=== PATIENT | female | born 1980 | race Caucasian/White ===

== ENCOUNTER 2017-04-20 21:44 | Emergency (ER) | payer BC ==
[2017-04-20] MEDS ORDERED: Zofran 4 MG/2 ML VIAL IV ONE (22:05)
[2017-04-20] MEDS ORDERED: Sodium Chloride 0.9% 1000 ML 1,000 ML IV STA (22:05)
[2017-04-20] MEDS ORDERED: MORPHINE SULFATE 4 MG INJ IV ONE ×2 (22:05→22:56)
--- NOTE | 2017-04-20 22:09 | ERPHSYRPT ---
- History of Present Illness Time Seen by Provider: 04/20/17 22:06 Source: patient Exam Limitations: no limitations Patient Subjective Stated Complaint: Pt sts headache on right side of head that starts in the right occipit and radiates into the right side of the front of the head. Reports it feels like her head is going to "blow off". Describes as crescendo headache that has worsened over last 2 days. Reports that she has taken excedrin without relief and also Imitrex x 2 without relief. Reports nausea. Triage Nursing Assessment: Pt alert, oriented, answers questions appropriately. Skin pink, warm, dry. Resps non-labored. Pt holding head shielding eyes from the light. Ambulatory to tx room, steady gait noted. Physician History: 36-year-old white female arrives with complaint of pain in her head superior region radiating to the right side symptoms going on for 2 days. Patient states she's had nausea no vomiting no fevers. Patient has had photophobia. Patient states she's had history of headaches in the past but never really diagnosed with migraines. Past medical history is negative otherwise. Past surgical history includes appendectomy, tubal ligation Timing/Duration: today Severity: moderate Modifying Factors: Improves With: nothing Associated Symptoms: nausea, headaches, No vomiting, No abdominal pain, No shortness of breath, No heartburn, No diaphoresis, No cough, No chills, No chest pain, No fever, No loss of appetite, No malaise, No rash, No syncope, No seizure Allergies/Adverse Reactions: Penicillins Allergy (Verified 04/20/17 22:04) Home Medications: Sumatriptan Succinate 25 mg [Imitrex 25 MG] 25 mg PO BID PRN 04/20/17 [History] Hx Tetanus, Diphtheria Vaccination/Date Given: Yes Hx Influenza Vaccination/Date Given: No Hx Pneumococcal Vaccination/Date Given: No - Review of Systems Constitutional: No Fever, No Chills Eyes: Photophobia, No Discharge, No Eye Pain, No Eye Redness, No Itchy, No Tearing, No Vision Changes, No Double Vision, No Foreign Body Sensation Ears, Nose, & Throat: No Symptoms, No Ear Pain, No Ear Discharge, No Hearing Changes, No Tinnitus, No Nose Pain, No Nose Congestion, No Nose Discharge, No Sinus Drainage, No Epistaxis, No Mouth Pain, No Mouth Swelling, No Loose Teeth, No Throat Pain, No Throat Swelling, No Hoarse, No Painful Swallowing, No Snoring Respiratory: No Cough, No Dyspnea Cardiac: No Chest Pain, No Edema, No Syncope Abdominal/Gastrointestinal: Nausea, No Abdominal Pain, No Vomiting, No Diarrhea Genitourinary Symptoms: No Dysuria Musculoskeletal: No Back Pain, No Neck Pain Skin: No Rash Neurological: Headache, No Dizziness, No Focal Weakness, No Gait Changes, No Irritability, No Lethargy, No Paralysis, No Parasthesia, No Seizure, No Sensory Changes, No Speech Changes, No Tics, No Tremors, No Vertigo Psychological: No Symptoms Endocrine: No Symptoms All Other Systems: Reviewed and Negative - Past Medical History Pertinent Past Medical History: No - Past Surgical History Past Surgical History: Yes Gastrointestinal: Appendectomy Female Surgical History: Tubal Ligation - Social History Smoking Status: Never smoker Exposure to second hand smoke: No Alcohol Use: Socially Drug Use: none Patient Lives Alone: No Significant Family History: no pertinent family hx - Female History Hx Last Menstrual Period: 4 days ago Hx Now: No - Nursing Vital Signs Nursing Vital Signs: Initial Vital Signs Temperature 97.8 F 04/20/17 21:54 Pulse Rate 82 04/20/17 21:54 Respiratory Rate 16 04/20/17 21:54 Blood Pressure 138/75 04/20/17 21:54 O2 Sat by Pulse Oximetry 97 04/20/17 21:54 Pain Scale Pain Intensity 8 - Physical Exam General Appearance: mild distress Eye Exam: PERRL/EOMI, eyes nml inspection Ears, Nose, Throat Exam: normal ENT inspection, TMs normal, pharynx normal, moist mucous membranes Neck Exam: normal inspection, non-tender, supple, full range of motion Respiratory Exam: normal breath sounds, lungs clear, No respiratory distress Cardiovascular Exam: regular rate/rhythm, normal heart sounds, normal peripheral pulses Gastrointestinal/Abdomen Exam: soft, normal bowel sounds, No tenderness, No mass Back Exam: normal inspection, normal range of motion, No CVA tenderness, No vertebral tenderness Extremity Exam: normal inspection, normal range of motion, pelvis stable Neurologic Exam: alert, oriented x 3, cooperative, 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, normal mood/affect, nml cerebellar function, nml station & gait, sensation nml, No motor deficits Lymphatic Exam: No adenopathy SpO2 Interpretation: normal (97%) SpO2: 97 Oxygen Delivery: Room Air - Course Nursing assessment & vital signs reviewed: Yes - CT Exams Head CT Interpretation: Tele-radiologist Report (head CT without contrast: Impression : Normal head/brain CT) Ordered Tests: Active Orders 24 hr Category Date Time Status IV Insertion STAT Care 04/20/17 22:05 Active HEAD WITHOUT CONTRAST [CT] Stat Exams 04/20/17 22:57 Taken BMP Stat Lab 04/20/17 22:10 Completed CBC W DIFF Stat Lab 04/20/17 22:10 Completed Medication Summary Discontinued Medications Generic Name Dose Route Start Last Admin Trade Name Freq PRN Reason Stop Dose Admin Sodium Chloride 1,000 mls @ 999 mls/hr 04/20/17 22:05 04/20/17 22:23 Sodium Chloride 0.9% 1000 Ml IV 04/20/17 23:05 999 mls/hr .Q1H1M STA Administration Sodium Chloride Confirm 04/20/17 22:18 Sodium Chloride 0.9% 1000 Ml Administered 04/20/17 22:19 Dose 1,000 mls @ ud .ROUTE .STK-MED ONE Morphine Sulfate 4 mg 04/20/17 22:05 04/20/17 22:22 Morphine Sulfate 4 Mg Inj IV 04/20/17 22:06 4 mg STAT ONE Administration Morphine Sulfate Confirm 04/20/17 22:18 Morphine Sulfate 4 Mg Inj Administered 04/20/17 22:19 Dose 4 mg .ROUTE .STK-MED ONE Morphine Sulfate 4 mg 04/20/17 22:56 04/20/17 23:04 Morphine Sulfate 4 Mg Inj IV 04/20/17 22:57 4 mg STAT ONE Administration Morphine Sulfate Confirm 04/20/17 23:00 Morphine Sulfate 4 Mg Inj Administered 04/20/17 23:01 Dose 4 mg .ROUTE .STK-MED ONE Ondansetron HCl 4 mg 04/20/17 22:05 04/20/17 22:23 Zofran 4 Mg/2 Ml Vial IV 04/20/17 22:06 4 mg STAT ONE Administration Ondansetron HCl Confirm 04/20/17 22:18 Zofran 4 Mg/2 Ml Vial Administered 04/20/17 22:19 Dose 4 mg .ROUTE .STK-MED ONE Lab/Rad Data: Laboratory Result Diagrams 04/20/17 22:10 04/20/17 22:10 Laboratory Results 04/20/17 04/20/17 Range/Units 22:10 22:10 WBC 10.5 (4.0-10.5) K/mm3 RBC 4.67 (4.1-5.4) M/mm3 Hgb 13.0 (12.0-16.0) gm/dl Hct 39.7 (35-47) % MCV 85.0 (78-100) fl MCH 27.8 (26-32) pg MCHC 32.7 (32-36) g/dl RDW 13.9 (11.5-14.0) % Plt Count 257 (150-450) K/mm3 MPV 9.3 (6-9.5) fl Gran % 62.0 (36.0-66.0) % Lymphocytes % 30.2 (24.0-44.0) % Monocytes % 6.1 (0.0-12.0) % Eosinophils % 1.5 (0.00-5.0) % Basophils % 0.2 (0.0-0.4) % Basophils # 0.02 (0-0.4) Sodium 142 (136-145) mEq/L Potassium 3.7 (3.5-5.1) mEq/L Chloride 105 (98-107) mEq/L Carbon Dioxide 26.7 (21-32) mEq/L Anion Gap 14.0 (5-15) MEQ/L BUN 12 (9-20) mg/dL Creatinine 0.73 (0.55-1.30) mg/dl Estimated GFR > 60 ML/MIN Glucose 120 H (70-110) MG/DL Calcium 8.9 (8.5-10.1) mg/dL - Progress Progress: improved Progress Note: 04/20/17 23:43 Patient is improved would not pain-free after 8 mg of morphine and 1 L of normal saline. CBC head CT within normal limits patient without any neck pain. Patient is concerned that she is not completely pain-free. I've offered patient Toradol injection she really doesn't want this. I've offered to discuss her case with Dr. Coker for possible admission for pain control she does not want this. Will go ahead and give patient a prescription for [place] for pain patient to return home rest dark quiet room. Follow-up with Dr. Coker tomorrow if symptoms persist. Return for acute distress or for severe symptoms. - Departure Time of Disposition: 23:45 Departure Disposition: Home Clinical Impression: Headache Qualifiers: Headache type: unspecified Headache chronicity pattern: acute headache Intractability: not intractable Qualified Code(s): R51 - Headache Condition: Fair Critical Care Time: No Referrals: MOSHE ROQUE [Primary Care Provider] - Instructions: Headache Additional Instructions: Return home. Rest in a dark quiet room. [place] 5/325 one to two orally every 4-6 hours as needed for pain. Follow-up with your family doctor tomorrow if symptoms persist. Return for acute distress or for severe symptoms. Prescriptions: Hydrocodone/Acetaminophen [[place] 5-325 Tablet] 1 - 2 tab PO Q4-6HPRN PRN #12 tablet PRN Reason: Pain
[2017-04-20] MEDS ORDERED: Sodium Chloride 0.9% 1000 ML 1,000 ML ONE (22:18)
[2017-04-20] MEDS ORDERED: MORPHINE SULFATE 4 MG INJ ONE ×2 (22:18→23:00)
[2017-04-20] MEDS ORDERED: Zofran 4 MG/2 ML VIAL ONE (22:18)
[2017-04-20 22:21] LABS: BASOPHIL % 0.2 % (0.0-0.4); Eosinophil % 1.5 % (0.00-5.0); Lymphocytes % 30.2 % (24.0-44.0); Mean Corpuscular Hemoglobin 27.8 pg (26-32); Mean Platelet Volume 9.3 fl (6-9.5); Monocytes % 6.1 % (0.0-12.0); Platelet Count 257 K/mm3 (150-450); Red Blood Count 4.67 M/mm3 (4.1-5.4); Red Cell Distribution Width 13.9 % (11.5-14.0); White Blood Count 10.5 K/mm3 (4.0-10.5)
[2017-04-20 22:36] LABS: BLOOD UREA NITROGEN 12 mg/dL (9-20); Carbon Dioxide 26.7 mEq/L (21-32); Glucose 120 MG/DL (70-110)
[2017-04-20 22:47] LABS: CHLORIDE 105 mEq/L (98-107); Potassium 3.7 mEq/L (3.5-5.1); SODIUM 142 mEq/L (136-145)
[2017-04-20] MEDS ORDERED: NORCO 5/325 MG PO ONE (23:48)
[2017-04-20] MEDS ORDERED: NORCO 5/325 MG ONE (23:55)
[2017-04-21 00:16] VITALS: BP 118/75; PULSE 65; O2SAT 98
--- NOTE | 2017-04-21 08:45 | XRAY ---
Indication: Right-sided headache and nausea. Multiple contiguous axial images obtained through the head without contrast. Comparison: None. Normal appearing brain parenchyma, ventricles, and bony calvarium. Visualized paranasal sinuses and mastoid air cells clear. Impression: Normal CT head without contrast exam. Comment: Preliminary interpretation was made by [facility]. No discrepancy. CT DI 69.66
== END 2017-04-21 00:15 | disposition home or self-care (01) ==
LOC: ED 21:44
DX: R51 Headache (principal); R11.0 Nausea
CPT/HCPCS: 36000; 36415; 70450; 80048; 85025; 96360; 96374; 96375; 96376; 99284; J2270; J2405; A9270-GY

== ENCOUNTER 2019-05-25 02:43 | Emergency (ER) | payer BC ==
--- NOTE | 2019-05-25 03:49 | ERPHSYRPT ---
- History of Present Illness Time Seen by Provider: 05/25/19 03:00 Source: patient Exam Limitations: no limitations Patient Subjective Stated Complaint: pt states, "The pain in my rt ear and down the rt side of my neck woke me up at 0200 this morning. I've had some drainage x2 weeks as well but I thought that was because I had 2 new ear piercings". Triage Nursing Assessment: pt alert and oriented x3, pleasant. Pt c/o rt ear pain radiating into neck area, throbbing and pressure. Has had some drainage x2 weeks but also has 2 new ear piercings as well. Rt ear and neck are very tender. Physician History: 38 y/o white female presents with 2 week h/o right ear drainage. pt recently had piercing of tragus. this am at 0200, significant pain right ext ear, ear canal pain and mastoid pain. post auricular adenopathy present. with pain radiating caudally along lymph node chain. no fever. pt allergic to pcn but has had keflex and rocephin in past without issues. denies ear trauma Timing/Duration: abrupt onset (this am) ENT Location: ear (R) Prearrival Treatment: no prearrival treatment Associated Symptoms: ear pain (R), ear drainage, swollen glands, No cough, No fever Allergies/Adverse Reactions: Penicillins Allergy (Verified 04/20/17 22:04) Hx Tetanus, Diphtheria Vaccination/Date Given: Yes Hx Influenza Vaccination/Date Given: Yes Hx Pneumococcal Vaccination/Date Given: No Immunizations Up to Date: Yes - Review of Systems Constitutional: No Symptoms Eyes: No Symptoms Ears, Nose, & Throat: Ear Pain (right ), Ear Discharge (at new ear piercing site ) Respiratory: No Symptoms Cardiac: No Symptoms Abdominal/Gastrointestinal: No Symptoms Genitourinary Symptoms: No Symptoms Musculoskeletal: No Symptoms Skin: No Symptoms Neurological: No Symptoms Psychological: No Symptoms Endocrine: No Symptoms Hematologic/Lymphatic: No Symptoms Immunological/Allergic: No Symptoms All Other Systems: Reviewed and Negative - Past Medical History Pertinent Past Medical History: No Neurological History: No Pertinent History ENT History: No Pertinent History Cardiac History: No Pertinent History Respiratory History: No Pertinent History Endocrine Medical History: No Pertinent History Musculoskeletal History: No Pertinent History GI Medical History: No Pertinent History History: No Pertinent History Psycho-Social History: No Pertinent History Female Reproductive Disorders: No Pertinent History - Past Surgical History Past Surgical History: Yes Neuro Surgical History: No Pertinent History Cardiac: No Pertinent History Respiratory: No Pertinent History Gastrointestinal: Appendectomy Genitourinary: No Pertinent History Musculoskeletal: No Pertinent History Female Surgical History: Tubal Ligation - Social History Smoking Status: Never smoker Exposure to second hand smoke: No Alcohol Use: Socially Drug Use: none Patient Lives Alone: No Significant Family History: no pertinent family hx - Female History Hx Last Menstrual Period: currently Hx Now: No - Nursing Vital Signs Nursing Vital Signs: Initial Vital Signs Temperature 97.5 F 05/25/19 02:52 Pulse Rate 85 05/25/19 02:52 Respiratory Rate 15 05/25/19 02:52 Blood Pressure 118/84 05/25/19 02:52 O2 Sat by Pulse Oximetry 97 05/25/19 02:52 Pain Scale Pain Intensity 4 - Physical Exam General Appearance: no apparent distress, alert, anxiety Eye Exam: bilateral eye: normal inspection, PERRL, EOMI Ear Exam: right ear: swelling, tenderness, left ear: auricle normal, canal normal, TM normal, other (ear canal swollen,external ear swollen. tenderness mastoid. post auricular adenopathy) Throat Exam: normal, pharynx normal, No dental tenderness, No excessive drooling , No foreign body Neck Exam: non-tender, supple, full range of motion, trachea midline, lymphadenopathy (R) (tenderness along upper right cervival chain. 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 Skin Exam: normal color, warm, dry SpO2 Interpretation: normal SpO2: 97 O2 Delivery: Room Air - Course Nursing assessment & vital signs reviewed: Yes Ordered Tests: Active Orders 24 hr Category Date Time Status IAC W/O CONTRAST [CT] Stat Exams 05/25/19 03:23 Taken - Progress Progress: unchanged, pain not gone completely Progress Note: 05/25/19 04:31 ct iac-no acute findings pt does not want narcotics Counseled pt/family regarding: diagnosis, need for follow-up, rad results - Departure Departure Disposition: Home Clinical Impression: Mastoiditis of right side Condition: Stable Critical Care Time: No Referrals: MOSHE ROQUE [Primary Care Provider] - Additional Instructions: may add tylenol and ibuprofen for pain. follow up with primary doctor for persistent symptoms. Prescriptions: Ciprofloxacin [Cipro 500 MG] 500 mg PO BID #20 tablet Prednisone 10 mg [Deltasone 10 mg] 10 mg PO TID #12 tablet
[2019-05-25] MEDS ORDERED: Rocephin 1000 MG INJ IM ONE (04:30)
[2019-05-25] MEDS ORDERED: solu-MEDROL 125 MG IM ONE (04:30)
[2019-05-25] MEDS ORDERED: Rocephin 1000 MG INJ ONE (04:34)
[2019-05-25] MEDS ORDERED: solu-MEDROL 125 MG ONE (04:34)
[2019-05-25 04:50] VITALS: BP 115/80; PULSE 77; O2SAT 98
--- NOTE | 2019-05-25 09:16 | XRAY ---
Indication: Right ear infection. Multiple contiguous thin axial images obtained through the internal auditory canals. Two-dimensional sagittal and coronal reformatted images obtained. Comparison: None Internal and external auditory canals are bilaterally symmetric. No soft tissue mass, opacification, or fluid leveling in the middle ear including epitympanic recess. Ossicles and scutum unremarkable. Mastoid air cells are pneumatized and clear. The cochlea and semicircular canals are bilaterally symmetric. Remaining visualized noncontrasted soft tissues are unremarkable. Impression: Negative CT internal auditory canals. Comment: Preliminary interpretation was made by [facility]. No discrepancy. CT DI 28.41
== END 2019-05-25 04:50 | disposition home or self-care (01) ==
LOC: ED 02:43
DX: H70.91 Unspecified mastoiditis, right ear (principal)
CPT/HCPCS: 70480; 96372; 99284; J0696; J2930

== ENCOUNTER 2022-09-25 18:18 | Observation (INO) | payer BC ==
[2022-09-25] MEDS ORDERED: Sodium Chloride 0.9% 1000 ML 1,000 ML IV STA (19:31)
[2022-09-25] MEDS ORDERED: Sodium Chloride 0.9% 1000 ML 1,000 ML ONE (19:35)
[2022-09-25 19:42] LABS: HCG URINE TEST NEGATIVE (NEGATIVE)
[2022-09-25 19:43] LABS: Absolute Neutrophil Ct (ANC) 10.56 x10^3/uL (1.4-6.9); BASOPHIL % 0.3 % (0.0-0.4); Basophil (Absolute #) 0.04 x10^3/uL (0-0.4); Eosinophil % 0.2 % (0.00-5.0); Eosinophil (Absolute #) 0.03 x10^3/uL (0-0.5); Hematocrit 42.4 % (35-47); IMMATURE GRAN # 0.03 x10^3u/L (0.00-0.03); IMMATURE GRAN % 0.2 % (0.00-0.4); Lymphocyte (Absolute #) 2.41 x10^3/uL (1.0-4.6); Lymphocytes % 17.5 % (24.0-44.0); Mean Cell Volume 85.8 fL (78-100); Mean Corpuscular Hemoglobin 28.3 pg (26-32); Mean Platelet Volume 10.2 fL (7.5-11.0); Monocyte (Absolute #) 0.73 x10^3/uL (0.0-1.3); Monocytes % 5.3 % (0.0-12.0); Neutrophil % 76.5 % (36.0-66.0); Platelet Count 241 x10^3/uL (150-450); Red Blood Count 4.94 x10^6/uL (4.1-5.4); White Blood Count 13.8 x10^3/uL (4.0-10.5)
[2022-09-25] MEDS ORDERED: Zofran 4 MG/2 ML VIAL IV ONE (19:43)
[2022-09-25] MEDS ORDERED: Zofran 4 MG/2 ML VIAL ONE (19:44)
[2022-09-25 19:57] LABS: Appearance Clear (Clear); Bacteria None Seen /HPF (None Seen); Bilirubin Negative (Negative); Blood Small (Negative); Epithelial Cells Rare /HPF (None Seen); Glucose, Urine Negative (Negative); Hyaline Casts NONE SEEN /LPF (0-2); Ketones 40 (Negative); Leukocyte Esterase Negative (Negative); Nitrite Negative (Negative); Ph 5.5 (4.6-8.0); Protein,Urine Dip Trace (Negative); RBC 0-2 /HPF (0-5); Specific Gravity 1.025 (1.005-1.030); WBC 0-2 /HPF (0-5)
[2022-09-25 19:58] LABS: ADD URINE CULTURE? NO (NO)
--- NOTE | 2022-09-25 20:10 | ERPHSYRPT ---
- History of Present Illness Time Seen by Provider: 09/25/22 19:30 Historian: patient Patient Subjective Stated Complaint: PT HERE FOR BRIGHT RED BLOOD IN STOOLS TODAY WITH LOWER ABD CRAMPING. SHE STATES SHE HAS NOT FELT WELL SINCE FRIDAY, HAS HAD SOME N/V Triage Nursing Assessment: PT ALERT, WALKED IN, IN MILD DISTRESS, RESP EASY, SKIN W/D/P. ABD SOFT WITH BS HEARD, LOWER ABD TENDER TO TOUCH Physician History: Patient is a 42-year-old female presents to our ED for evaluation of lower abdominal pain and bright red blood per rectum. Patient states symptoms started on Friday approximately 2 to 3 days ago. Patient's lower abdominal pain de scribed as a cramping sensation. Patient observed small amount of blood in her stool. No vaginal discharge. No trauma. No fever. Patient's last colonoscopy was approximately 8 years ago. Patient is otherwise healthy. No history of diverticulitis or any intra-abdominal pathology for that matter. When present symptoms were moderate in intensity. Patient states pain is currently minimal. She declined pain medication. However she later requested Zofran for nausea. Patient does not have a primary care physician that she follows. Patient states she is otherwise healthy. She voices no other complaints or concerns at this time. Portions of this note were created with voice recognition technology. There may be grammatical, spelling, punctuation or sound alike errors Timing/Duration: day(s) (2 days) Activities at Onset: none Quality: aching Abdominal Pain Onset Location: other (Lower abdomen) Pain Radiation: no radiation Severity of Pain-Max: moderate Severity of Pain-Current: mild Modifying Factors: Improves With: nothing Associated Symptoms: nausea, other (Bright red blood per rectum) Previous symptoms: no prior history Allergies/Adverse Reactions: Penicillins Allergy (Verified 09/25/22 19:07) Hx Tetanus, Diphtheria Vaccination/Date Given: No Hx Influenza Vaccination/Date Given: Yes Hx Pneumococcal Vaccination/Date Given: No Immunizations Up to Date: Yes Travel Risk - International Travel Have you traveled outside of the country in past 3 weeks: No - Coronavirus Screening Are you exhibiting any of the following symptoms?: No Close contact with a COVID-19 positive Pt in past 14-21 Days: No - Vaccine Status Have you recieved a Covid-19 vaccination: Yes [employer]: [employer] - Vaccination Dates Date of 2cond Vaccination (if applicable): 2020 - Review of Systems Constitutional: No Symptoms, No Fever, No Chills Eyes: No Symptoms Ears, Nose, & Throat: No Symptoms Respiratory: No Symptoms, No Cough, No Dyspnea Cardiac: No Symptoms, No Chest Pain, No Edema, No Syncope Abdominal/Gastrointestinal: No Symptoms, No Abdominal Pain, No Nausea, No Vomiting, No Diarrhea Genitourinary Symptoms: No Symptoms, No Dysuria Musculoskeletal: No Symptoms, No Back Pain, No Neck Pain Skin: No Symptoms, No Rash Neurological: No Symptoms, No Dizziness, No Focal Weakness, No Sensory Changes Psychological: No Symptoms Endocrine: No Symptoms Hematologic/Lymphatic: No Symptoms Immunological/Allergic: No Symptoms All Other Systems: Reviewed and Negative - Past Medical History Pertinent Past Medical History: No Neurological History: No Pertinent History ENT History: No Pertinent History Cardiac History: No Pertinent History Respiratory History: No Pertinent History Endocrine Medical History: No Pertinent History Musculoskeletal History: No Pertinent History GI Medical History: No Pertinent History History: No Pertinent History Psycho-Social History: No Pertinent History Female Reproductive Disorders: No Pertinent History - Past Surgical History Past Surgical History: Yes Neuro Surgical History: No Pertinent History Cardiac: No Pertinent History Respiratory: No Pertinent History Gastrointestinal: Appendectomy Genitourinary: No Pertinent History Musculoskeletal: No Pertinent History Female Surgical History: Tubal Ligation Other Surgical History: BREAST REDUCTION - Social History Smoking Status: Never smoker Exposure to second hand smoke: No Alcohol Use: Socially Drug Use: none Patient Lives Alone: No Significant Family History: no pertinent family hx - Female History Hx Last Menstrual Period: AUGUST Hx Now: No - Nursing Vital Signs Nursing Vital Signs: Initial Vital Signs Temperature 98.3 F 09/25/22 19:10 Pulse Rate 78 09/25/22 19:10 Respiratory Rate 18 09/25/22 19:10 Blood Pressure 137/84 09/25/22 19:10 O2 Sat by Pulse Oximetry 98 09/25/22 19:10 Pain Scale Pain Intensity 3 - Physical Exam General Appearance: no apparent distress, alert Eye Exam: PERRL/EOMI, eyes nml inspection Ears, Nose, Throat Exam: normal ENT inspection, TMs normal, pharynx normal, mois t mucous membranes Neck Exam: normal inspection, non-tender, supple, full range of motion Respiratory Exam: normal breath sounds, lungs clear, airway intact, No respiratory distress Cardiovascular Exam: regular rate/rhythm, normal heart sounds, normal peripheral pulses Gastrointestinal/Abdomen Exam: soft, tenderness, other (Tenderness to palpation left lower quadrant. No guarding. No peritoneal signs.), No mass Back Exam: normal inspection, normal range of motion, No CVA tenderness, No vertebral tenderness Extremity Exam: normal inspection, normal range of motion, pelvis stable Neurologic Exam: alert, oriented x 3, cooperative, brick off bearer II-XII nml as tested, normal mood/affect, nml cerebellar function, sensation nml, No motor deficits Skin Exam: normal color, warm, dry Lymphatic Exam: No adenopathy SpO2 Interpretation: normal SpO2: 99 O2 Delivery: Room Air - Course Nursing assessment & vital signs reviewed: Yes - CT Exams Abdomen/Pelvis CT Interpretation: Tele-radiologist Report (Compared to 01/30/2011 new mild descending and proximal sigmoid colitis without complications.) Ordered Tests: Active Orders 24 hr Category Date Time Status IV Insertion STAT Care 09/25/22 19:31 Active ABDOMEN AND PELVIS W CONTRAST [CT] Stat Exams 09/25/22 19:32 Taken CBC W DIFF Stat Lab 09/25/22 19:38 Completed CMP Stat Lab 09/25/22 19:38 Completed HCG QUALITATIVE, URINE Stat Lab 09/25/22 19:35 Completed LIPASE Stat Lab 09/25/22 19:38 Completed TROPONIN Q4H Lab 09/25/22 19:38 Completed TROPONIN Q4H Lab 09/25/22 23:45 Ordered TROPONIN Q4H Lab 09/26/22 03:45 Ordered UA W/RFX UR CULTURE Stat Lab 09/25/22 19:34 Completed Transfer Order Routine Transfer 09/26/22 Ordered Medication Summary Discontinued Medications Generic Name Dose Route Start Last Admin Trade Name Andreiq PRN Reason Stop Dose Admin Hydrocodone Bitart/Acetaminophen 1 tab 09/25/22 23:01 09/25/22 23:13 Hydrocodone/Apap 5/325 1 Tab Tablet PO 09/25/22 23:02 1 tab STAT ONE Administration Hydrocodone Bitart/Acetaminophen Confirm 09/25/22 23:08 Hydrocodone/Apap 5/325 1 Tab Tablet Administered 09/25/22 23:09 Dose 1 tab .ROUTE .STK-MED ONE Sodium Chloride 1,000 mls @ 999 mls/hr 09/25/22 19:31 09/25/22 20:59 Sodium Chloride 0.9% 1000 Ml IV 09/25/22 20:31 Infused .Q1H1M STA Infusion Sodium Chloride Confirm 09/25/22 19:35 Sodium Chloride 0.9% 1000 Ml Administered 09/25/22 19:36 Dose 1,000 mls @ ud .ROUTE .STK-MED ONE Levofloxacin/Dextrose 500 mg in 100 mls @ 100 mls/hr 09/25/22 22:36 09/26/22 00:27 Levofloxacin 500mg/100ml D5w IV 09/25/22 23:35 Infused STAT STA Infusion Metronidazole 500 mg in 100 mls @ 200 mls/hr 09/25/22 22:36 09/25/22 23:31 Flagyl 500 Mg Ivpb IV 09/25/22 23:05 Infused STAT STA Infusion Levofloxacin/Dextrose Confirm 09/25/22 22:41 Levofloxacin 500mg/100ml D5w Administered 09/25/22 22:42 Dose 500 mg in 100 mls @ ud IV .STK-MED ONE Metronidazole Confirm 09/25/22 22:42 Flagyl 500 Mg Ivpb Administered 09/25/22 22:43 Dose 500 mg in 100 mls @ ud IV .STK-MED ONE Ondansetron HCl 4 mg 09/25/22 19:43 09/25/22 19:45 Ondansetron Hcl 4 Mg/2 Ml Vial IV 09/25/22 19:44 4 mg STAT ONE Administration Ondansetron HCl Confirm 09/25/22 19:44 Ondansetron Hcl 4 Mg/2 Ml Vial Administered 09/25/22 19:45 Dose 4 mg .ROUTE .STK-MED ONE Lab/Rad Data: Laboratory Result Diagrams 09/25/22 19:38 09/25/22 19:38 Laboratory Results 09/25/22 09/25/22 09/25/22 Range/Units 23:35 19:38 19:38 WBC (4.0-10.5) x10^3/uL RBC (4.1-5.4) x10^6/uL Hgb (12.0-16.0) g/dL Hct (35-47) % MCV (78-100) fL MCH (26-32) pg MCHC (32-36) g/dL RDW (11.5-14.0) % Plt Count (150-450) x10^3/uL MPV (7.5-11.0) fL Gran % (36.0-66.0) % Immature Gran % (Auto) (0.00-0.4) % Nucleat RBC Rel Count (0.00-0.1) % Eos # (Auto) (0-0.5) x10^3/uL Immature Gran # (Auto) (0.00-0.03) x10^3u/L Absolute Lymphs (auto) (1.0-4.6) x10^3/uL Absolute Monos (auto) (0.0-1.3) x10^3/uL Absolute Nucleated RBC (0.00-0.01) x10^3u/L Lymphocytes % (24.0-44.0) % Monocytes % (0.0-12.0) % Eosinophils % (0.00-5.0) % Basophils % (0.0-0.4) % Absolute Granulocytes (1.4-6.9) x10^3/uL Basophils # (0-0.4) x10^3/uL Sodium 138 (137-145) mmol/L Potassium 3.9 (3.5-5.1) mmol/L Chloride 103 (98-107) mmol/L Carbon Dioxide 26 (22-30) mmol/L Anion Gap 12.8 (5-15) MEQ/L BUN 19 H (7-17) mg/dL Creatinine 0.65 (0.52-1.04) mg/dL Estimated GFR > 60.0 ML/MIN Glucose 87 (74-106) mg/dL Calcium 8.4 (8.4-10.2) mg/dL Total Bilirubin 0.80 (0.2-1.3) mg/dL AST 22 (14-36) U/L ALT 15 (0-35) U/L Alkaline Phosphatase 61 (38-126) U/L Troponin I < 0.012 (0.000-0.034) ng/mL Serum Total Protein 6.9 (6.3-8.2) g/dL Albumin 4.1 (3.5-5.0) g/dL Lipase 60 (23-300) U/L Urine Color (Yellow) Urine Appearance (Clear) Urine pH (4.6-8.0) Ur Specific [place] (1.005-1.030) Urine Protein (Negative) Urine Glucose (UA) (Negative) mg/dL Urine Ketones (Negative) Urine Blood (Negative) Urine Nitrite (Negative) Urine Bilirubin (Negative) Urine Urobilinogen (0.2) mg/dL Ur Leukocyte Esterase (Negative) U Hyaline Cast (Auto) (0-2) /LPF Urine Microscopic RBC (0-5) /HPF Urine Microscopic WBC (0-5) /HPF Ur Epithelial Cells (None Seen) /HPF Urine Bacteria (None Seen) /HPF Urine Culture Reflexed (NO) Urine HCG, Qual (NEGATIVE) Influenza Type A Ag NEGATIVE (NEGATIVE) Influenza Type B Ag NEGATIVE (NEGATIVE) RSV (PCR) NEGATIVE (NEGATIVE) SARS-CoV-2 (PCR) NEGATIVE (NEGATIVE) 09/25/22 09/25/22 09/25/22 Range/Units 19:38 19:35 19:34 WBC 13.8 H (4.0-10.5) x10^3/uL RBC 4.94 (4.1-5.4) x10^6/uL Hgb 14.0 (12.0-16.0) g/dL Hct 42.4 (35-47) % MCV 85.8 (78-100) fL MCH 28.3 (26-32) pg MCHC 33.0 (32-36) g/dL RDW 13.0 (11.5-14.0) % Plt Count 241 (150-450) x10^3/uL MPV 10.2 (7.5-11.0) fL Gran % 76.5 H (36.0-66.0) % Immature Gran % (Auto) 0.2 (0.00-0.4) % Nucleat RBC Rel Count 0.0 (0.00-0.1) % Eos # (Auto) 0.03 (0-0.5) x10^3/uL Immature Gran # (Auto) 0.03 (0.00-0.03) x10^3u/L Absolute Lymphs (auto) 2.41 (1.0-4.6) x10^3/uL Absolute Monos (auto) 0.73 (0.0-1.3) x10^3/uL Absolute Nucleated RBC 0.00 (0.00-0.01) x10^3u/L Lymphocytes % 17.5 L (24.0-44.0) % Monocytes % 5.3 (0.0-12.0) % Eosinophils % 0.2 (0.00-5.0) % Basophils % 0.3 (0.0-0.4) % Absolute Granulocytes 10.56 H (1.4-6.9) x10^3/uL Basophils # 0.04 (0-0.4) x10^3/uL Sodium (137-145) mmol/L Potassium (3.5-5.1) mmol/L Chloride (98-107) mmol/L Carbon Dioxide (22-30) mmol/L Anion Gap (5-15) MEQ/L BUN (7-17) mg/dL Creatinine (0.52-1.04) mg/dL Estimated GFR ML/MIN Glucose (74-106) mg/dL Calcium (8.4-10.2) mg/dL Total Bilirubin (0.2-1.3) mg/dL AST (14-36) U/L ALT (0-35) U/L Alkaline Phosphatase (38-126) U/L Troponin I (0.000-0.034) ng/mL Serum Total Protein (6.3-8.2) g/dL Albumin (3.5-5.0) g/dL Lipase (23-300) U/L Urine Color Yellow (Yellow) Urine Appearance Clear (Clear) Urine pH 5.5 (4.6-8.0) Ur Specific [place] 1.025 (1.005-1.030) Urine Protein Trace A (Negative) Urine Glucose (UA) Negative (Negative) mg/dL Urine Ketones 40 A (Negative) Urine Blood Small A (Negative) Urine Nitrite Negative (Negative) Urine Bilirubin Negative (Negative) Urine Urobilinogen 1.0 A (0.2) mg/dL Ur Leukocyte Esterase Negative (Negative) U Hyaline Cast (Auto) NONE SEEN (0-2) /LPF Urine Microscopic RBC 0-2 (0-5) /HPF Urine Microscopic WBC 0-2 (0-5) /HPF Ur Epithelial Cells Rare (None Seen) /HPF Urine Bacteria None Seen (None Seen) /HPF Urine Culture Reflexed NO (NO) Urine HCG, Qual NEGATIVE (NEGATIVE) Influenza Type A Ag (NEGATIVE) Influenza Type B Ag (NEGATIVE) RSV (PCR) (NEGATIVE) SARS-CoV-2 (PCR) (NEGATIVE) - Progress Progress: improved Progress Note: Patient is a 42-year-old female presents to our emergency department for evaluation of left lower quadrant pain. Pain has been progressively worsening. Pain now associated with bright red blood per rectum. CT abdomen pelvis reveals a sigmoid colitis. CBC shows a leukocytosis of 13.8. CMP within normal limits. COVID-negative. hCG negative. Lipase negative. Urinalysis negative. Troponin negative. Patient received Levaquin and Flagyl. Patient also received a dose of Zofran in our ED. Patient requested hydrocodone for pain control. IV fluids infused. Patient had a bloody bowel movement in our ED. Patient continues to feel bloated and experienced pain. Patient agreed to admission. Case discussed with who excepts admission to observation. Patient's presenting problem is acute. Complexity of problem addressed is moderate. New diagnosis with uncertain prognosis. No critical care time. Complexity of data reviewed and analyzed is moderate. Test ordered. Test reviewed and analyzed including urinalysis. Case and management discussed with hospitalist who excepts admission to observation. Patient agrees to admission at [facility] for further evaluation and treatment. Portions of this note were created with voice recognition technology. There may be grammatical, spelling, punctuation or sound alike errors Risk of complication and or risk morbidity/mortality of patient management is high. Patient will require hospitalization for further evaluation and antibiotic administration and pain control. Patient reassessed. Pain improved. She voices no other complaints or concerns at this time. Portions of this note were created with voice recognition technology. There may be grammatical, spelling, punctuation or sound alike errors 09/26/22 01:08 Counseled pt/family regarding: lab results, diagnosis, rad results - Departure Departure Disposition: Observation Clinical Impression: Leukocytosis, Colitis, Abdominal pain Condition: Stable Critical Care Time: No Referrals: DOCTOR,NO FAMILY [Primary Care Provider] - Follow up/PCP as directed
[2022-09-25 20:22] LABS: ALBUMIN 4.1 g/dL (3.5-5.0); ALKALINE PHOSPHATASE 61 U/L (38-126); ANION GAP 12.8 MEQ/L (5-15); BLOOD UREA NITROGEN 19 mg/dL (7-17); CHLORIDE 103 mmol/L (98-107); Calcium 8.4 mg/dL (8.4-10.2); Carbon Dioxide 26 mmol/L (22-30); Creatinine 1 0.65 mg/dL (0.52-1.04); EST GLOMERULAR FILTRATION RATE > 60.0 ML/MIN; Glucose 87 mg/dL (74-106); LIPASE 60 U/L (23-300); Potassium 3.9 mmol/L (3.5-5.1); SGOT/AST 22 U/L (14-36); SGPT/ALT 15 U/L (0-35); SODIUM 138 mmol/L (137-145); Total Protein 6.9 g/dL (6.3-8.2)
[2022-09-25] MEDS ORDERED: Levofloxacin 500MG/100ML D5W 500 MG/100 ML BAG IV STA (22:36)
[2022-09-25] MEDS ORDERED: FLAGYL 500 MG IVPB 500 MG/100 ML BAG IV STA (22:36)
[2022-09-25] MEDS ORDERED: Levofloxacin 500MG/100ML D5W 500 MG/100 ML BAG IV ONE (22:41)
[2022-09-25] MEDS ORDERED: FLAGYL 500 MG IVPB 500 MG/100 ML BAG IV ONE (22:42)
[2022-09-25] MEDS ORDERED: NORCO 5/325 MG PO ONE (23:01)
[2022-09-25] MEDS ORDERED: NORCO 5/325 MG ONE (23:08)
[2022-09-26 00:51] LABS: INFLUENZA A NEGATIVE (NEGATIVE); INFLUENZA B NEGATIVE (NEGATIVE); RESPIRATORY SYNCTIAL VIRUS NEGATIVE (NEGATIVE); SARS-CoV-2 Xpert Express NEGATIVE (NEGATIVE)
[2022-09-26] MEDS ORDERED: MORPHINE SULFATE 2 MG INJ IV PRN (01:11)
[2022-09-26] MEDS: Sodium Chloride 0.9% 1000 ML 1,000 ML IV SCH ×2 (02:57→14:55)
[2022-09-26 05:03] LABS: Absolute Neutrophil Ct (ANC) 7.38 x10^3/uL (1.4-6.9); BASOPHIL % 0.6 % (0.0-0.4); Basophil (Absolute #) 0.06 x10^3/uL (0-0.4); Eosinophil % 0.5 % (0.00-5.0); Eosinophil (Absolute #) 0.05 x10^3/uL (0-0.5); Hematocrit 37.4 % (35-47); Hemoglobin 12.4 g/dL (12.0-16.0); IMMATURE GRAN # 0.03 x10^3u/L (0.00-0.03); IMMATURE GRAN % 0.3 % (0.00-0.4); Lymphocytes % 23.3 % (24.0-44.0); Mean Cell Volume 85.6 fL (78-100); Mean Corpuscular Hemoglobin 28.4 pg (26-32); Mean Corpuscular Hgb Concent. 33.2 g/dL (32-36); Mean Platelet Volume 9.7 fL (7.5-11.0); Monocyte (Absolute #) 0.71 x10^3/uL (0.0-1.3); Monocytes % 6.6 % (0.0-12.0); Neutrophil % 68.7 % (36.0-66.0); Platelet Count 192 x10^3/uL (150-450); Red Blood Count 4.37 x10^6/uL (4.1-5.4); White Blood Count 10.7 x10^3/uL (4.0-10.5)
[2022-09-26 05:24] LABS: ALBUMIN 3.9 g/dL (3.5-5.0); ALKALINE PHOSPHATASE 62 U/L (38-126); BLOOD UREA NITROGEN 11 mg/dL (7-17); CHLORIDE 105 mmol/L (98-107); Calcium 8.1 mg/dL (8.4-10.2); Carbon Dioxide 26 mmol/L (22-30); Creatinine 1 0.59 mg/dL (0.52-1.04); EST GLOMERULAR FILTRATION RATE > 60.0 ML/MIN; Glucose 92 mg/dL (74-106); Potassium 3.8 mmol/L (3.5-5.1); SGOT/AST 21 U/L (14-36); SGPT/ALT 15 U/L (0-35); SODIUM 140 mmol/L (137-145); Total Protein 6.7 g/dL (6.3-8.2)
[2022-09-26] MEDS: FLAGYL 500 MG IVPB 500 MG/100 ML BAG IV SCH ×2 (06:22→11:57)
--- NOTE | 2022-09-26 08:00 | PCM.HP ---
History of Present Illness - Chief Complaint Chief Complaint: abdominal pain, cellulitis Date: 09/25/22 History of Present Illness: is a 42 year old female. she presents with abdominal pain, bloody stools, nausea for week. She has episodes where she has past just blood. She has had some mild light headedness dizziness. She also has a hsitory of Hemorrhoids. last bloody bowel movement was 10 minutes prior to this interview. There have been some chills. Left sided abdominal pain is 3 at rest and up to 7 with palpation. She has never had anything like this before. Pain is crampy. She has been able to keep down fluids PO. She denies any new foods, medicines, sick contacts. Medications & Allergies Home Medications: Home Medication List Ascorbic Acid 500 mg [Vitamin C 500 MG] 500 mg PO DAILY 09/26/22 [History Confirmed 09/26/22] Cholecalciferol (Vitamin D3) [Vitamin D] 5,000 unit PO DAILY 09/26/22 [History Confirmed 09/26/22] Semaglutide [Wegovy] 1 mg SQ WEEKLY 09/26/22 [History Confirmed 09/26/22] Allergies/Adverse Reactions: Allergies Allergy/AdvReac Type Severity Reaction Status Date / Time Penicillins Allergy Verified 09/25/22 19:07 - Past Medical History Past Medical History: No Neurological History: Migraines ENT History: No Pertinent History Cardiac History: No Pertinent History Respiratory History: No Pertinent History Endocrine Medical History: No Pertinent History Musculoskelatal History: No Pertinent History GI Medical History: Polyps, Other History: No Pertinent History Pyscho-Social History: No Pertinent History Reproductive Disorders: No Pertinent History Comment: had first colonoscopy at 25 due to severe constipation - Female History Hx Last Menstrual Period: AUGUST Are you now?: No - Past Surgical History Past Surgical History: Yes Neuro Surgical History: No Pertinent History Cardiac History: No Pertinent History Respiratory Surgery: No Pertinent History GI Surgical History: Appendectomy Genitourinary Surgical Hx: No Pertinent History Musculskeletal Surgical Hx: No Pertinent History Female Surgical History: Tubal Ligation Other Surgical History: BREAST REDUCTION - Social History Smoking Status: Never smoker Exposure to second hand smoke: No Alcohol: Occasionally Drug Use: none Significant Family History: no pertinent family hx - Physical Exam Vital Signs: Vital Signs - 24 hr Temp Pulse Resp BP Pulse Ox 09/26/22 04:00 70 16 09/26/22 01:21 97.5 F 77 17 116/57 97 09/26/22 01:12 99 09/26/22 01:11 97 09/26/22 01:06 87 17 118/69 97 09/26/22 00:24 76 20 106/71 97 09/25/22 23:03 70 18 118/71 98 09/25/22 22:05 73 20 112/74 99 09/25/22 21:06 80 20 125/65 99 09/25/22 20:03 76 18 125/77 99 09/25/22 19:10 98.3 F 78 18 137/84 98 General Appearance: no apparent distress Neurologic Exam: alert, oriented x 3, cooperative, normal mood/affect Neck Exam: normal inspection Respiratory Exam: normal breath sounds Cardiovascular Exam: regular rate/rhythm, normal heart sounds Gastrointestinal/Abdomen Exam: soft, tenderness Pelvic Exam: not done Skin Exam: normal color Results - Labs Lab/Micro Results: Lab Results-Last 24 Hours 09/25/22 09/25/22 09/25/22 Range/Units 19:34 19:35 19:38 WBC 13.8 H (4.0-10.5) x10^3/uL RBC 4.94 (4.1-5.4) x10^6/uL Hgb 14.0 (12.0-16.0) g/dL Hct 42.4 (35-47) % MCV 85.8 (78-100) fL MCH 28.3 (26-32) pg MCHC 33.0 (32-36) g/dL RDW 13.0 (11.5-14.0) % Plt Count 241 (150-450) x10^3/uL MPV 10.2 (7.5-11.0) fL Gran % 76.5 H (36.0-66.0) % Immature Gran % (Auto) 0.2 (0.00-0.4) % Nucleat RBC Rel Count 0.0 (0.00-0.1) % Eos # (Auto) 0.03 (0-0.5) x10^3/uL Immature Gran # (Auto) 0.03 (0.00-0.03) x10^3u/L Absolute Lymphs (auto) 2.41 (1.0-4.6) x10^3/uL Absolute Monos (auto) 0.73 (0.0-1.3) x10^3/uL Absolute Nucleated RBC 0.00 (0.00-0.01) x10^3u/L Lymphocytes % 17.5 L (24.0-44.0) % Monocytes % 5.3 (0.0-12.0) % Eosinophils % 0.2 (0.00-5.0) % Basophils % 0.3 (0.0-0.4) % Absolute Granulocytes 10.56 H (1.4-6.9) x10^3/uL Basophils # 0.04 (0-0.4) x10^3/uL Sodium (137-145) mmol/L Potassium (3.5-5.1) mmol/L Chloride (98-107) mmol/L Carbon Dioxide (22-30) mmol/L Anion Gap (5-15) MEQ/L BUN (7-17) mg/dL Creatinine (0.52-1.04) mg/dL Estimated GFR ML/MIN Glucose (74-106) mg/dL Calcium (8.4-10.2) mg/dL Total Bilirubin (0.2-1.3) mg/dL AST (14-36) U/L ALT (0-35) U/L Alkaline Phosphatase (38-126) U/L Troponin I (0.000-0.034) ng/mL Serum Total Protein (6.3-8.2) g/dL Albumin (3.5-5.0) g/dL Lipase (23-300) U/L Urine Color Yellow (Yellow) Urine Appearance Clear (Clear) Urine pH 5.5 (4.6-8.0) Ur Specific [place] 1.025 (1.005-1.030) Urine Protein Trace A (Negative) Urine Glucose (UA) Negative (Negative) mg/dL Urine Ketones 40 A (Negative) Urine Blood Small A (Negative) Urine Nitrite Negative (Negative) Urine Bilirubin Negative (Negative) Urine Urobilinogen 1.0 A (0.2) mg/dL Ur Leukocyte Esterase Negative (Negative) U Hyaline Cast (Auto) NONE SEEN (0-2) /LPF Urine Microscopic RBC 0-2 (0-5) /HPF Urine Microscopic WBC 0-2 (0-5) /HPF Ur Epithelial Cells Rare (None Seen) /HPF Urine Bacteria None Seen (None Seen) /HPF Urine Culture Reflexed NO (NO) Urine HCG, Qual NEGATIVE (NEGATIVE) Influenza Type A Ag (NEGATIVE) Influenza Type B Ag (NEGATIVE) RSV (PCR) (NEGATIVE) SARS-CoV-2 (PCR) (NEGATIVE) 09/25/22 09/25/22 09/25/22 Range/Units 19:38 19:38 23:35 WBC (4.0-10.5) x10^3/uL RBC (4.1-5.4) x10^6/uL Hgb (12.0-16.0) g/dL Hct (35-47) % MCV (78-100) fL MCH (26-32) pg MCHC (32-36) g/dL RDW (11.5-14.0) % Plt Count (150-450) x10^3/uL MPV (7.5-11.0) fL Gran % (36.0-66.0) % Immature Gran % (Auto) (0.00-0.4) % Nucleat RBC Rel Count (0.00-0.1) % Eos # (Auto) (0-0.5) x10^3/uL Immature Gran # (Auto) (0.00-0.03) x10^3u/L Absolute Lymphs (auto) (1.0-4.6) x10^3/uL Absolute Monos (auto) (0.0-1.3) x10^3/uL Absolute Nucleated RBC (0.00-0.01) x10^3u/L Lymphocytes % (24.0-44.0) % Monocytes % (0.0-12.0) % Eosinophils % (0.00-5.0) % Basophils % (0.0-0.4) % Absolute Granulocytes (1.4-6.9) x10^3/uL Basophils # (0-0.4) x10^3/uL Sodium 138 (137-145) mmol/L Potassium 3.9 (3.5-5.1) mmol/L Chloride 103 (98-107) mmol/L Carbon Dioxide 26 (22-30) mmol/L Anion Gap 12.8 (5-15) MEQ/L BUN 19 H (7-17) mg/dL Creatinine 0.65 (0.52-1.04) mg/dL Estimated GFR > 60.0 ML/MIN Glucose 87 (74-106) mg/dL Calcium 8.4 (8.4-10.2) mg/dL Total Bilirubin 0.80 (0.2-1.3) mg/dL AST 22 (14-36) U/L ALT 15 (0-35) U/L Alkaline Phosphatase 61 (38-126) U/L Troponin I < 0.012 (0.000-0.034) ng/mL Serum Total Protein 6.9 (6.3-8.2) g/dL Albumin 4.1 (3.5-5.0) g/dL Lipase 60 (23-300) U/L Urine Color (Yellow) Urine Appearance (Clear) Urine pH (4.6-8.0) Ur Specific [place] (1.005-1.030) Urine Protein (Negative) Urine Glucose (UA) (Negative) mg/dL Urine Ketones (Negative) Urine Blood (Negative) Urine Nitrite (Negative) Urine Bilirubin (Negative) Urine Urobilinogen (0.2) mg/dL Ur Leukocyte Esterase (Negative) U Hyaline Cast (Auto) (0-2) /LPF Urine Microscopic RBC (0-5) /HPF Urine Microscopic WBC (0-5) /HPF Ur Epithelial Cells (None Seen) /HPF Urine Bacteria (None Seen) /HPF Urine Culture Reflexed (NO) Urine HCG, Qual (NEGATIVE) Influenza Type A Ag NEGATIVE (NEGATIVE) Influenza Type B Ag NEGATIVE (NEGATIVE) RSV (PCR) NEGATIVE (NEGATIVE) SARS-CoV-2 (PCR) NEGATIVE (NEGATIVE) 09/26/22 09/26/22 Range/Units 04:27 04:27 WBC 10.7 H (4.0-10.5) x10^3/uL RBC 4.37 (4.1-5.4) x10^6/uL Hgb 12.4 (12.0-16.0) g/dL Hct 37.4 (35-47) % MCV 85.6 (78-100) fL MCH 28.4 (26-32) pg MCHC 33.2 (32-36) g/dL RDW 13.0 (11.5-14.0) % Plt Count 192 (150-450) x10^3/uL MPV 9.7 (7.5-11.0) fL Gran % 68.7 H (36.0-66.0) % Immature Gran % (Auto) 0.3 (0.00-0.4) % Nucleat RBC Rel Count 0.0 (0.00-0.1) % Eos # (Auto) 0.05 (0-0.5) x10^3/uL Immature Gran # (Auto) 0.03 (0.00-0.03) x10^3u/L Absolute Lymphs (auto) 2.50 (1.0-4.6) x10^3/uL Absolute Monos (auto) 0.71 (0.0-1.3) x10^3/uL Absolute Nucleated RBC 0.00 (0.00-0.01) x10^3u/L Lymphocytes % 23.3 L (24.0-44.0) % Monocytes % 6.6 (0.0-12.0) % Eosinophils % 0.5 (0.00-5.0) % Basophils % 0.6 (0.0-0.4) % Absolute Granulocytes 7.38 H (1.4-6.9) x10^3/uL Basophils # 0.06 (0-0.4) x10^3/uL Sodium 140 (137-145) mmol/L Potassium 3.8 (3.5-5.1) mmol/L Chloride 105 (98-107) mmol/L Carbon Dioxide 26 (22-30) mmol/L Anion Gap 13.0 (5-15) MEQ/L BUN 11 (7-17) mg/dL Creatinine 0.59 (0.52-1.04) mg/dL Estimated GFR > 60.0 ML/MIN Glucose 92 (74-106) mg/dL Calcium 8.1 L (8.4-10.2) mg/dL Total Bilirubin 1.00 (0.2-1.3) mg/dL AST 21 (14-36) U/L ALT 15 (0-35) U/L Alkaline Phosphatase 62 (38-126) U/L Troponin I (0.000-0.034) ng/mL Serum Total Protein 6.7 (6.3-8.2) g/dL Albumin 3.9 (3.5-5.0) g/dL Lipase (23-300) U/L Urine Color (Yellow) Urine Appearance (Clear) Urine pH (4.6-8.0) Ur Specific [place] (1.005-1.030) Urine Protein (Negative) Urine Glucose (UA) (Negative) mg/dL Urine Ketones (Negative) Urine Blood (Negative) Urine Nitrite (Negative) Urine Bilirubin (Negative) Urine Urobilinogen (0.2) mg/dL Ur Leukocyte Esterase (Negative) U Hyaline Cast (Auto) (0-2) /LPF Urine Microscopic RBC (0-5) /HPF Urine Microscopic WBC (0-5) /HPF Ur Epithelial Cells (None Seen) /HPF Urine Bacteria (None Seen) /HPF Urine Culture Reflexed (NO) Urine HCG, Qual (NEGATIVE) Influenza Type A Ag (NEGATIVE) Influenza Type B Ag (NEGATIVE) RSV (PCR) (NEGATIVE) SARS-CoV-2 (PCR) (NEGATIVE) - Radiology Impressions Radiology Exams & Impressions: Radiology Procedures Category Date Time Status ABDOMEN AND PELVIS W CONTRAST [CT] Stat Exams 09/25/22 19:32 Taken Assessment/Plan (1) Abdominal pain Current Visit: Yes Status: Acute Qualifiers: Abdominal location: left upper quadrant Qualified Code(s): R10.12 - Left upper quadrant pain Assessment & Plan: Mild pain at rest, without signs of systemic toxicity, CT suggests inflammation/colitis, blood stool is a little concerning. With history hemorrho ids. Will follow - may benefit from outpatient sigmoidoscopy. conservative management from now. Will advance diet. Stool studies pending. Code(s): R10.9 - UNSPECIFIED ABDOMINAL PAIN (2) Headache Current Visit: No Status: Acute Qualifiers: Headache type: tension-type Headache chronicity pattern: acute headache Intractability: not intractable Qualified Code(s): G44.209 - Tension-type headache, unspecified, not intractable Assessment & Plan: Conservative management - will treat with analgesics. Code(s): R51 - HEADACHE * DO NOT USE * (3) Colitis Current Visit: Yes Status: Acute Assessment & Plan: as above, conservative management for now with follow up with GI due to bleeding, no anemia Code(s): K52.9 - NONINFECTIVE GASTROENTERITIS AND COLITIS, UNSPECIFIED Telemedicine Encounter - Telemedicine Encounter Telemedicine Encounter: The entirety of this encounter was performed via Telemedicine"
[2022-09-26] MEDS: Zofran 4 MG/2 ML VIAL IV PRN ×2 (08:39→16:37)
--- NOTE | 2022-09-26 08:49 | XRAY ---
Indication: Abdomen pain, left greater than right. Blood in stool. Nausea, vomiting, and elevated WBC. Multiple contiguous axial images obtained through the abdomen and pelvis using 80 cc Isovue 370 contrast. Comparison: January 30, 2011 Lung bases clear. Heart not enlarged. Noncontrasted stomach and bowel loops appear nonobstructed. Previous appendectomy. Entire descending colon and proximal sigmoid now demonstrates mild circumferential wall thickening with minimal stranding favoring colitis. No free fluid/air. Remaining liver, gallbladder, pancreas, spleen, adrenal glands, kidneys, ureters, bladder, uterus, and aorta are normal in CT appearance and attenuation. No pathologic retroperitoneal lymphadenopathy. Osseous structures intact. Impression: New CT findings favoring descending and sigmoid colitis. No complications.
--- NOTE | 2022-09-26 09:06 | PCM.NOTE ---
Date and Time: 09/26/22904 Subjective Assessment: mild pain improved, still had bloody stool overnight. Objective Exam General Appearance: no apparent distress Neurologic Exam: alert, oriented x 3 Cardiovascular Exam: regular rate/rhythm, normal heart sounds Gastrointestinal/Abdomen Exam: tenderness (LLQ), No guarding, No rebound Extremity Exam: normal inspection, normal range of motion OBJECTIVE DATA Vital Signs: Vital Signs - 24 hr Temp Pulse Resp BP Pulse Ox 09/26/22 08:00 97.3 F 80 16 119/60 98 09/26/22 04:00 70 16 09/26/22 01:21 97.5 F 77 17 116/57 97 09/26/22 01:12 99 09/26/22 01:11 97 09/26/22 01:06 87 17 118/69 97 09/26/22 00:24 76 20 106/71 97 09/25/22 23:03 70 18 118/71 98 09/25/22 22:05 73 20 112/74 99 09/25/22 21:06 80 20 125/65 99 09/25/22 20:03 76 18 125/77 99 09/25/22 19:10 98.3 F 78 18 137/84 98 Pain Assessment - Last Documented Pain Intensity 0 Pain Scale Used 0-10 Pain Scale Intake and Output: Intake & Output 09/23/22 09/24/22 09/25/22 09/26/22 11:59 11:59 11:59 11:59 Weight 82.1 kg Lab Results: Lab Results-Last 24 Hours 09/25/22 09/25/22 09/25/22 Range/Units 19:34 19:35 19:38 WBC 13.8 H (4.0-10.5) x10^3/uL RBC 4.94 (4.1-5.4) x10^6/uL Hgb 14.0 (12.0-16.0) g/dL Hct 42.4 (35-47) % MCV 85.8 (78-100) fL MCH 28.3 (26-32) pg MCHC 33.0 (32-36) g/dL RDW 13.0 (11.5-14.0) % Plt Count 241 (150-450) x10^3/uL MPV 10.2 (7.5-11.0) fL Gran % 76.5 H (36.0-66.0) % Immature Gran % (Auto) 0.2 (0.00-0.4) % Nucleat RBC Rel Count 0.0 (0.00-0.1) % Eos # (Auto) 0.03 (0-0.5) x10^3/uL Immature Gran # (Auto) 0.03 (0.00-0.03) x10^3u/L Absolute Lymphs (auto) 2.41 (1.0-4.6) x10^3/uL Absolute Monos (auto) 0.73 (0.0-1.3) x10^3/uL Absolute Nucleated RBC 0.00 (0.00-0.01) x10^3u/L Lymphocytes % 17.5 L (24.0-44.0) % Monocytes % 5.3 (0.0-12.0) % Eosinophils % 0.2 (0.00-5.0) % Basophils % 0.3 (0.0-0.4) % Absolute Granulocytes 10.56 H (1.4-6.9) x10^3/uL Basophils # 0.04 (0-0.4) x10^3/uL Sodium (137-145) mmol/L Potassium (3.5-5.1) mmol/L Chloride (98-107) mmol/L Carbon Dioxide (22-30) mmol/L Anion Gap (5-15) MEQ/L BUN (7-17) mg/dL Creatinine (0.52-1.04) mg/dL Estimated GFR ML/MIN Glucose (74-106) mg/dL Calcium (8.4-10.2) mg/dL Total Bilirubin (0.2-1.3) mg/dL AST (14-36) U/L ALT (0-35) U/L Alkaline Phosphatase (38-126) U/L Troponin I (0.000-0.034) ng/mL Serum Total Protein (6.3-8.2) g/dL Albumin (3.5-5.0) g/dL Lipase (23-300) U/L Urine Color Yellow (Yellow) Urine Appearance Clear (Clear) Urine pH 5.5 (4.6-8.0) Ur Specific [place] 1.025 (1.005-1.030) Urine Protein Trace A (Negative) Urine Glucose (UA) Negative (Negative) mg/dL Urine Ketones 40 A (Negative) Urine Blood Small A (Negative) Urine Nitrite Negative (Negative) Urine Bilirubin Negative (Negative) Urine Urobilinogen 1.0 A (0.2) mg/dL Ur Leukocyte Esterase Negative (Negative) U Hyaline Cast (Auto) NONE SEEN (0-2) /LPF Urine Microscopic RBC 0-2 (0-5) /HPF Urine Microscopic WBC 0-2 (0-5) /HPF Ur Epithelial Cells Rare (None Seen) /HPF Urine Bacteria None Seen (None Seen) /HPF Urine Culture Reflexed NO (NO) Urine HCG, Qual NEGATIVE (NEGATIVE) Influenza Type A Ag (NEGATIVE) Influenza Type B Ag (NEGATIVE) RSV (PCR) (NEGATIVE) SARS-CoV-2 (PCR) (NEGATIVE) 09/25/22 09/25/22 09/25/22 Range/Units 19:38 19:38 23:35 WBC (4.0-10.5) x10^3/uL RBC (4.1-5.4) x10^6/uL Hgb (12.0-16.0) g/dL Hct (35-47) % MCV (78-100) fL MCH (26-32) pg MCHC (32-36) g/dL RDW (11.5-14.0) % Plt Count (150-450) x10^3/uL MPV (7.5-11.0) fL Gran % (36.0-66.0) % Immature Gran % (Auto) (0.00-0.4) % Nucleat RBC Rel Count (0.00-0.1) % Eos # (Auto) (0-0.5) x10^3/uL Immature Gran # (Auto) (0.00-0.03) x10^3u/L Absolute Lymphs (auto) (1.0-4.6) x10^3/uL Absolute Monos (auto) (0.0-1.3) x10^3/uL Absolute Nucleated RBC (0.00-0.01) x10^3u/L Lymphocytes % (24.0-44.0) % Monocytes % (0.0-12.0) % Eosinophils % (0.00-5.0) % Basophils % (0.0-0.4) % Absolute Granulocytes (1.4-6.9) x10^3/uL Basophils # (0-0.4) x10^3/uL Sodium 138 (137-145) mmol/L Potassium 3.9 (3.5-5.1) mmol/L Chloride 103 (98-107) mmol/L Carbon Dioxide 26 (22-30) mmol/L Anion Gap 12.8 (5-15) MEQ/L BUN 19 H (7-17) mg/dL Creatinine 0.65 (0.52-1.04) mg/dL Estimated GFR > 60.0 ML/MIN Glucose 87 (74-106) mg/dL Calcium 8.4 (8.4-10.2) mg/dL Total Bilirubin 0.80 (0.2-1.3) mg/dL AST 22 (14-36) U/L ALT 15 (0-35) U/L Alkaline Phosphatase 61 (38-126) U/L Troponin I < 0.012 (0.000-0.034) ng/mL Serum Total Protein 6.9 (6.3-8.2) g/dL Albumin 4.1 (3.5-5.0) g/dL Lipase 60 (23-300) U/L Urine Color (Yellow) Urine Appearance (Clear) Urine pH (4.6-8.0) Ur Specific [place] (1.005-1.030) Urine Protein (Negative) Urine Glucose (UA) (Negative) mg/dL Urine Ketones (Negative) Urine Blood (Negative) Urine Nitrite (Negative) Urine Bilirubin (Negative) Urine Urobilinogen (0.2) mg/dL Ur Leukocyte Esterase (Negative) U Hyaline Cast (Auto) (0-2) /LPF Urine Microscopic RBC (0-5) /HPF Urine Microscopic WBC (0-5) /HPF Ur Epithelial Cells (None Seen) /HPF Urine Bacteria (None Seen) /HPF Urine Culture Reflexed (NO) Urine HCG, Qual (NEGATIVE) Influenza Type A Ag NEGATIVE (NEGATIVE) Influenza Type B Ag NEGATIVE (NEGATIVE) RSV (PCR) NEGATIVE (NEGATIVE) SARS-CoV-2 (PCR) NEGATIVE (NEGATIVE) 09/26/22 09/26/22 Range/Units 04:27 04:27 WBC 10.7 H (4.0-10.5) x10^3/uL RBC 4.37 (4.1-5.4) x10^6/uL Hgb 12.4 (12.0-16.0) g/dL Hct 37.4 (35-47) % MCV 85.6 (78-100) fL MCH 28.4 (26-32) pg MCHC 33.2 (32-36) g/dL RDW 13.0 (11.5-14.0) % Plt Count 192 (150-450) x10^3/uL MPV 9.7 (7.5-11.0) fL Gran % 68.7 H (36.0-66.0) % Immature Gran % (Auto) 0.3 (0.00-0.4) % Nucleat RBC Rel Count 0.0 (0.00-0.1) % Eos # (Auto) 0.05 (0-0.5) x10^3/uL Immature Gran # (Auto) 0.03 (0.00-0.03) x10^3u/L Absolute Lymphs (auto) 2.50 (1.0-4.6) x10^3/uL Absolute Monos (auto) 0.71 (0.0-1.3) x10^3/uL Absolute Nucleated RBC 0.00 (0.00-0.01) x10^3u/L Lymphocytes % 23.3 L (24.0-44.0) % Monocytes % 6.6 (0.0-12.0) % Eosinophils % 0.5 (0.00-5.0) % Basophils % 0.6 (0.0-0.4) % Absolute Granulocytes 7.38 H (1.4-6.9) x10^3/uL Basophils # 0.06 (0-0.4) x10^3/uL Sodium 140 (137-145) mmol/L Potassium 3.8 (3.5-5.1) mmol/L Chloride 105 (98-107) mmol/L Carbon Dioxide 26 (22-30) mmol/L Anion Gap 13.0 (5-15) MEQ/L BUN 11 (7-17) mg/dL Creatinine 0.59 (0.52-1.04) mg/dL Estimated GFR > 60.0 ML/MIN Glucose 92 (74-106) mg/dL Calcium 8.1 L (8.4-10.2) mg/dL Total Bilirubin 1.00 (0.2-1.3) mg/dL AST 21 (14-36) U/L ALT 15 (0-35) U/L Alkaline Phosphatase 62 (38-126) U/L Troponin I (0.000-0.034) ng/mL Serum Total Protein 6.7 (6.3-8.2) g/dL Albumin 3.9 (3.5-5.0) g/dL Lipase (23-300) U/L Urine Color (Yellow) Urine Appearance (Clear) Urine pH (4.6-8.0) Ur Specific [place] (1.005-1.030) Urine Protein (Negative) Urine Glucose (UA) (Negative) mg/dL Urine Ketones (Negative) Urine Blood (Negative) Urine Nitrite (Negative) Urine Bilirubin (Negative) Urine Urobilinogen (0.2) mg/dL Ur Leukocyte Esterase (Negative) U Hyaline Cast (Auto) (0-2) /LPF Urine Microscopic RBC (0-5) /HPF Urine Microscopic WBC (0-5) /HPF Ur Epithelial Cells (None Seen) /HPF Urine Bacteria (None Seen) /HPF Urine Culture Reflexed (NO) Urine HCG, Qual (NEGATIVE) Influenza Type A Ag (NEGATIVE) Influenza Type B Ag (NEGATIVE) RSV (PCR) (NEGATIVE) SARS-CoV-2 (PCR) (NEGATIVE) Radiology Exams: Radiology Procedures Category Date Time Status ABDOMEN AND PELVIS W CONTRAST [CT] Stat Exams 09/25/22 19:32 Completed Assessment/Plan (1) Colitis Current Visit: Yes Status: Acute Assessment & Plan: continue levaquin and flagyl Code(s): K52.9 - NONINFECTIVE GASTROENTERITIS AND COLITIS, UNSPECIFIED
[2022-09-26] MEDS: NORCO 5/325 MG PO PRN ×2 (09:16→16:37)
[2022-09-26 12:24] VITALS: O2SAT 99
[2022-09-26 16:52] VITALS: BP 106/58; PULSE 73
[2022-09-26] MEDS ORDERED: Levofloxacin 500MG/100ML D5W 500 MG/100 ML BAG IV SCH (22:00)
== END 2022-09-26 16:50 | disposition home or self-care (01) ==
LOC: ED 18:18 → MED SURG 09-26 01:07
PROVIDERS: ADMIT Internal Medicine; ATTEND Family Medicine
DX: R10.12 Left upper quadrant pain (principal); K52.9 Noninfective gastroenteritis and colitis, unspecified; Z79.899 Other long term (current) drug therapy; Z20.828 Contact with and (suspected) exposure to other viral communicable diseases
CPT/HCPCS: 0241U; 36000; 36415; 74177; 80053; 81001; 81025; 83690; 84484; 85025; 96365; 96368; 96374; 99285; G0378; J1956; J2405; A9270-GY

== ENCOUNTER 2022-12-05 06:15 | Day surgery (SDC) | payer BC ==
[2022-12-05] MEDS ORDERED: Lactated Ringers 1,000 ML IV SCH (06:30)
[2022-12-05 06:40] LABS: HCG URINE TEST NEGATIVE (NEGATIVE)
[2022-12-05] MEDS ORDERED: Lactated Ringers 1,000 ML IV ONE ×2 (07:03→08:19)
[2022-12-05] MEDS ORDERED: Xylocaine-Mpf 2% 5 Ml Vial ONE (07:53)
[2022-12-05] MEDS ORDERED: Versed 2 MG/2 ML Injection ONE (07:53)
[2022-12-05] MEDS ORDERED: DIPRIVAN 200 MG/20 ML IV ONE ×3 (07:53→08:21)
[2022-12-05 09:26] VITALS: BP 103/68; PULSE 79; O2SAT 99
--- NOTE | 2022-12-05 11:17 | OP ---
SURGERY DATE/TIME: 12/05/2022 0806 PREOPERATIVE DIAGNOSES: 1) History of colitis. 2) Chronic constipation. POSTOPERATIVE DIAGNOSIS: Normal colon. PROCEDURE: Colonoscopy. SURGEON: Jigar Lopez M.D. ANESTHESIA: MAC by Garcia Duque CRNA. ESTIMATED BLOOD LOSS: Minimal. SPECIMENS: Two cold forceps biopsies randomly taken from the sigmoid colon. DESCRIPTION OF PROCEDURE: After informed written consent was obtained, the patient was taken to the endoscopy suite. She was placed in left lateral decubitus position and anesthesia was titrated to desired level of consciousness. Digital rectal exam showed normal sphincter tone and no internal lesions. The scope was inserted into the rectum and sequentially the entire colonic mucosa was traversed. The level of cecum was reached and verified with direct visualization of the ileocecal valve. Upon withdrawal careful mucosal inspection revealed no gross abnormalities. There were no mucosal lesions or evidence of inflammatory process throughout the entire length of the colon. Two random cold forceps biopsies were taken from the distal sigmoid colon and sent for pathology testing. Prior to withdrawal retroflexion was performed and showed no internal lesions. The scope was removed. The patient was transferred to the recovery room in good condition.
== END 2022-12-05 09:30 | disposition home or self-care (01) ==
LOC: SDC 06:15
PROVIDERS: ATTEND Family Medicine
DX: Z87.19 Personal history of other diseases of the digestive system (principal); K59.09 Other constipation
CPT/HCPCS: 81025; J2250; J2704